=== PATIENT | female | born 1925 | race Caucasian/White ===

== ENCOUNTER 2016-10-26 20:36 | Emergency (ER) | payer SELFPAY ==
--- NOTE | 2016-10-26 22:31 | ED CLINICAL REPORT ---
Clinical Report - Physicians/Mid Levels [facility] [address] [place] [address] 10/26/2016 20:37 Patient: NURY POON Time Seen: 20:57; initial patient contact. Arrived- By private vehicle. Historian- patient. HISTORY OF PRESENT ILLNESS Chief Complaint: ABDOMINAL PAIN. It is described as sharp and it is described as located in the epigastric area and the left chest and radiating to the left chest. At its maximum, severity described as mild. When seen in the E.D., it was gone. Modifying factors. Not worsened by anything. Not relieved by anything. Is now gone (resolved upon arrival in the emergency department). It was gradual in onset and has been intermittent. No nausea, loss of appetite, vomiting or diarrhea. Similar symptoms previously: None. Recent medical care: Not recently seen/assessed. REVIEW OF SYSTEMS No constipation, black stools, hematemesis, difficulty with urination or pain with urination. No bloody stools. All systems otherwise negative, except as recorded above. PAST HISTORY Peripheral Neuropathy. Chronic Back Pain. Head Injury. Laceration. Neuropathy. Back Pain. Hypertension. Lipoma. - ADDITIONAL SURGERIES: Appendectomy. Back Surgery. SOCIAL HISTORY Never smoker. No alcohol use or drug use. ADDITIONAL NOTES The nursing notes have been reviewed. PHYSICAL EXAM Vital Signs: 10/26/2016 20:46 BP: 138/88. HR: 78. RR: 24. O2 saturation: 98%. Temp: 97.8 F. Solis-Brown pain scale: 8/10. Have been reviewed. Blood pressure normal. Heart rate normal. Tachypneic. Temperature normal. Oxygen saturation normal. Appearance: Alert. Oriented X3. No acute distress. Eyes: Eyes normal inspection. ENT: Dry mucous membranes present. Neck: Normal inspection. CVS: Normal heart rate and rhythm. Heart sounds normal. Respiratory: No respiratory distress. Breath sounds normal. Chest nontender. Abdomen: Soft and nontender. Bowel sounds normal. No organomegaly. No mass. Skin: Skin warm and dry. Normal skin color. Extremities: No calf tenderness. No lower extremity edema. Neuro: Oriented X 3. LABS, X-RAYS, AND EKG EKG: EKG time: (2054). No acute process. No acute ischemia. Normal EKG. Normal sinus rhythm. Rate: 74. Normal P waves. Normal MARCO A. Normal QRS complex. Normal axis. Normal ST and T waves, QT and QTc. Prior EKG unavailable. The study has been interpreted contemporaneously by me. The study has been independently viewed by me. The EKG appears to be a good tracing. Interpretation time: 2057. Chest X-ray: No acute disease. Normal lung markings present. Normal heart size. Mediastinum normal. Great vessels normal. No infiltrate. Views: AP. The X-rays were independently viewed by me and interpreted contemporaneously by me. A comparison with prior films reveals that the findings are unchanged. Interpretation time: 22:02. Laboratory Tests: UA-Culture if indicated: (CORAL: 10/26/2016 21:45) ( [facility] 10/26/2016 22:01) IP Test Result Flag Units (Reference) URINE COLOR YELLOW URINE APPEARANCE CLEAR URINE GLUCOSE NEGATIVE (NEGATIVE) URINE BILIRUBIN NEGATIVE (NEGATIVE) URINE KETONE NEGATIVE (NEGATIVE) URINE SPECIFIC GRAVITY 1.020 (1.010-1.030) URINE PH 6.0 (5.0-8.0) URINE PROTEIN NEGATIVE (NEGATIVE) URINE UROBILINOGEN 0.2 EU/dL (0.2-1.0) URINE NITRITE NEGATIVE (NEGATIVE) URINE BLOOD NEGATIVE (NEGATIVE) URINE LEUK ESTERASE NEGATIVE (NEGATIVE) CBC w Diff: (CORAL: 10/26/2016 20:56) ( [facility] 10/26/2016 21:30) Final results Test Result Flag Units (Reference) WHITE BLOOD COUNT 8.3 K/uL (4.5-11.5) RED BLOOD COUNT 4.46 M/uL (4.00-5.20) HEMOGLOBIN 13.9 gm/dL (12.0-16.0) HEMATOCRIT 41.0 % (36.0-46.0) MEAN CELL VOLUME 92 fL (80-100) MEAN CORPUSCULAR HGB 31 pg (26-34) MEAN CORPUSCULAR HGB CONC 34 g/dL (31-37) RED CELL DISTRIBUTION WIDTH 12.6 % (11.6-14.8) PLATELET COUNT 289 K/uL (150-400) NEUTROPHIL % 45.7 L % (50-75) LYMPH % 40.9 H % (25-40) MONO % 11.0 % (3-14) EOSINOPHIL % 1.8 % (0-4) BASOPHIL % 0.6 % (0-2) [id number]: (CORAL: 10/26/2016 20:56) ( [facility] 10/26/2016 21:37) Final results Test Result Flag Units (Reference) D-DIMER QUANTITATIVE < 0.27 L ug/mLFEU (0.27-0.52) The primary value of this quantitative assay relates toits negative predictive value (i.e. exclusion) of pulmonaryembolism/deep vein thrombosis/DIC.Elevated levels of d-dimer may also occur with:, age, cancer, inflammation, liver disease,post-op, infection, hematoma, coronary disease, peripheralarteriopathy, bleeding disorders and thrombolytic treatment.Results should be correlated with other clinical andradiological data.Testing Methodology: Latex Immunoassay BNP: (CORAL: 10/26/2016 20:56) ( [facility] 10/26/2016 21:50) Final results Test Result Flag Units (Reference) B-TYPE NATRIURETIC PEPTIDE 51 pg/ml (5-100) CHEM 13 PANEL: (CORAL: 10/26/2016 20:56) ( [facility] [place] [place] 21:42) Final results Test Result Flag Units (Reference) GLUCOSE 115 H mg/dL (70-110) BUN 21 H mg/dL (7-18) CREATININE 1.1 mg/dL (0.6-1.3) Estimated GFR 49.71 mL/min Estimated GFR- >60 mL/min Note: Persistent reduction over 3 months in eGFR<60 mL/min/1.73 m2 defines CKD. Patients with eGFR values>=60 mL/min/1.73 m2 may also have CKD if evidence ofpersistent proteinuria. Additional information may be foundat www.kidney.org. SODIUM 142 mmol/L (136-145) POTASSIUM 4.6 mmol/L (3.5-5.1) CHLORIDE 104 mmol/L (98-107) CARBON DIOXIDE 30 mmol/L (21-32) CALCIUM 9.4 mg/dL (8.5-10.1) TOTAL PROTEIN 7.6 g/dL (6.4-8.2) ALBUMIN 4.3 g/dL (3.3-5.0) BILIRUBIN, TOTAL 0.2 mg/dL (0.0-1.0) ALKALINE PHOSPHATASE 80 U/L (46-116) AST (SGOT) 12 L U/L (15-37) ALT (SGPT) 19 U/L (12-78) CPK 183 U/L (24-260) MAGNESIUM 2.0 mg/dL (1.8-2.4) TROPONIN I <0.05 L ng/mL (0.00-1.5) TROPONIN REFERENCE RANGE:<0.1 NEGATIVE0.1-1.5 INDETERMINANT>1.5 POSITIVE . PROGRESS AND PROCEDURES Disposition: Discharged home in good and improved condition. Condition: good. CLINICAL IMPRESSION Atypical chest pain .12 lead EKG performed. Mild dehydration INSTRUCTIONS Apply ice for 20 minutes four times a day until better. Don't apply ice directly to skin. Your Current Medications: CONTINUE TAKING THE FOLLOWING MEDICATIONS: Gabapentin Oral : 300 mg 3x a day. Lisinopril Oral. Multivitamins Oral. Musinex* : every morning. Tylenol*. Vitamin*. Vitamin D Oral. Prescription Medications: Tramadol 50 mg: take 1 orally every 6 hours as needed for pain and stiffness. Do not take more than 8 tablets in a 24 hour period. Dispense twenty (20). No refills. Follow-up: Follow up with your doctor in about two days. Call for an appointment. Blood pressure screening was not performed during this visit because the patient has an active diagnosis of hypertension. (Electronically signed by Anthony Haynes Dr. 10/27/2016 9:33)
--- NOTE | 2016-10-26 22:31 | ED ORDER SUMMARY ---
..... Patient: NURY POON OrderSheet [facility] VisitID: [id number] [place] [address] 89y, F Registration Date/Time: 10/26/2016 ORDER SHEET Weight: 68.0 kg (stated) Allergies: Demerol, Estrogen , Phenobarbital GENERAL ORDERS: Chest 1V Urgent (21:10/26/2016 Magen Riley) (Ack 21:30 Asael) (21:37 MCabell) UA-Culture if indicated Urgent (21:10/26/2016 Magen Riley) (Ack 21:30 Asael) (22:03 KPage-Kuchan R.N.) Cardiac Panel Stat (21:10/26/2016 Magen Riley) (Ack 21:30 Asael) (22:03 KPage-Kuchan R.N.) D-Dimer Urgent (21:10/26/2016 Magen Riley) (Ack 21:30 Asael) (22:03 KPage-Kuchan R.N.) BNP Urgent (21:10/26/2016 Magen Riley) (Ack 21:30 Asael) (22:03 KPage-Kuchan R.N.) MEDICATION ORDERS: IV FLUIDS: IV Saline Lock (21:22 10/26/2016 Magen Riley) (21:25 KPage-Kuchan R.N.) IV NS : initial bolus none -, then 1000 mL/hr for X1 (NOW) (22:00 10/26/2016 Magen Riley) (22:04 KPage-Kuchan R.N.) ORDER SHEET NOTES: [Electronically signed by Roseanna Jose R.N. (22:42 10/26/2016)] [Electronically signed by Anthony Haynes Dr. (09:33 10/27/2016)] [Electronically locked/signed by Roseanna Jose R.N. (22:42 10/26/2016)]
--- NOTE | 2016-10-26 22:31 | ED NURSING NOTES ---
Clinical Report - Nurses [facility] [address] [place] [address] 10/26/2016 20:37 [id number] Triage time 20:46. Acuity: LEVEL 3. Chief Complaint: ABDOMINAL PAIN and (upper abdominal pain). Alert. --20:53 Roseanna Jose R.N. 20:46 10/26/16. BP: 138/88. HR: 78. RR: 24. O2 saturation: 98% on room air. Temp: 97.8 F (oral). Solis-Brown pain scale: 8/10. --20:53 Roseanna Jose R.N. Weight: 68 kg stated. Height/Length: 59 inches Per Patient. BMI: 30.3. --20:48 Roseanna Jose R.N. Medications Gabapentin Oral 300 mg, 3x a day. Lisinopril Oral. --20:48 Roseanna Jose R.N. Musinex (every morning). --20:48 Roseanna Jose R.N. Tylenol. --20:48 Roseanna Jose R.N. Vitamin. --20:48 Roseanna Jose R.N. Multivitamins Oral. Vitamin D Oral. --20:49 Roseanna Jose R.N. Allergies Demerol. Probable Moderate Estrogen . (Uncertain) Phenobarbital. (Uncertain allergy) --20:48 Roseanna Jose R.N. History Arrived by private vehicle. Historian: patient. Accompanied by family. Primary physician (Dr English). This started today. Onset. (about 1 hours ago). 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 PAST MEDICAL HX: Immunizations: up-to-date. SOCIAL HX: Never smoker. No alcohol use. FUNCTIONAL ASSESSMENT: Functional assessment performed: requires assistance with the activities of daily living; uses cane. --20:53 Roseanna Jose R.N. PROBLEMS: Peripheral Neuropathy. Chronic Back Pain. Head Injury. Laceration. Neuropathy. Back Pain. Hypertension. Lipoma. --20:49 Roseanna Jose R.N. ADDITIONAL SURGERIES: Appendectomy. Back Surgery. --20:49 Roseanna Jose R.N. Interventions ID band on patient. To treatment room. --20:53 Roseanna Jose R.N. PHYSICAL ASSESSMENT Ambulatory to room. Patient gowned. ( pt presents with large (baseball sized) lump on antierior aspect of right shoulder, caregiver states that it has been looked at and they told her that they can't remove it because of her age.). GENERAL / NEURO / PSYCH: Alert. Oriented X 4. Appears in pain. HEENT: Mucous membranes are pink. RESPIRATORY: Respirations not labored. CVS: Capillary refill less than 2 seconds. SKIN: Skin is warm and dry. --20:54 Roseanna Jose R.N. NURSING PROGRESS NOTES Head of bed elevated. Two patient identifiers checked. Call light placed in reach. Side rails up x 1. Bed placed in lowest position. Brakes of bed on. --20:54 Roseanna Jose R.N. Patient ready for evaluation- chart flagged. --20:54 Roseanna Jose R.N. EKG time: (2054). EKG was performed by a tech and shown to the ED physician. --20:55 Roseanna Jose R.N. 20:59 10/26/2016 Site #1 started via IV in the right antecubital space with an 20g angiocath, with aseptic technique and good blood return; one attempt. Blood drawn: rainbow set. Labeled in the presence of the patient and sent to the lab. Saline lock flushed with 10 mL saline. --20:59 Roseanna Jose R.N. ( assumed care of pt, pt in poc, on monitor, c/o intermittent upper left abd pain that began abruptly this evening, pt has caregiver at bedside, labs sent, call light in hand, waiting MD oliva). --21:07 Jann Crespo R.N. electronic device monitor, pulse oximeter and NIBP monitor placed on patient; monitoring analyst- Lead II and V5; monitor alarms on. Head of bed elevated. Patient identifiers checked. Call light placed in reach. Side rails up x 1. Bed placed in lowest position. Brakes of bed on. Patient waiting for evaluation. --21:07 Jann Crespo R.N. Cardiac rhythm: (SR 70's). Call light placed in reach. Side rails up. --21:38 Jann Crespo R.N. 22:04 10/26/2016 Started bag #1 1000 mL IV Fluids IV NS (Saline); at 1000 mL/hr via site #1. Allergies verified and confirmed 5 rights. IV patency established. IV site checked: no pain, redness, or swelling. IV flushed thoroughly pre- and post-medication administration. --22:04 Jann Crespo R.N. Care transferred and report received. --22:12 Roseanna Jose R.N. 22:13 10/26/16. BP: 127/53. HR: 71. RR: 17. O2 saturation: 97%. --22:13 Jann Crespo R.N. Care transferred and report given (Roseanna RN). --22:15 Jann Crespo R.N. DISPOSITION / DISCHARGE 22:38 10/26/2016 Site #1 removed upon discharge. Catheter intact. Manual pressure and bandage applied. --22:38 Roseanna Jose R.N. 22:38 10/26/16. BP: 130/51. HR: 66. RR: 23. O2 saturation: 97% on room air. Temp: 98.5 F (oral). Pain level now: 0/10. --22:38 Roseanna Jose R.N. Condition at departure: improved and stable. No learning barriers present. Discharge instructions provided and reviewed with the patient. Reviewed medication(s) side effects, precautions, dosing and course information. Prescription(s) given to the patient. Patient verbalized understanding. Written instructions provided in Cameroonian. The patient was discharged home and accompanied by woodworking machine operator. She left the Emergency Department ambulatory and via private vehicle. Residential Manager driving. --22:42 Roseanna Jose R.N. Locked/Released at 10/26/2016 22:42 by Roseanna Jose R.N.
--- NOTE | 2016-10-26 22:31 | ED NURSING NOTES ---
Clinical Report - Nurses [facility] [address] [place] [address] 10/26/2016 20:37 [id number] Triage time 20:46. Acuity: LEVEL 3. Chief Complaint: ABDOMINAL PAIN and (upper abdominal pain). Alert. --20:53 Roseanna Jose R.N. 20:46 10/26/16. BP: 138/88. HR: 78. RR: 24. O2 saturation: 98% on room air. Temp: 97.8 F (oral). Solis-Brown pain scale: 8/10. --20:53 Roseanna Jose R.N. Weight: 68 kg stated. Height/Length: 59 inches Per Patient. BMI: 30.3. --20:48 Roseanna Jose R.N. Medications Gabapentin Oral 300 mg, 3x a day. Lisinopril Oral. --20:48 Roseanna Jose R.N. Musinex (every morning). --20:48 Roseanna Jose R.N. Tylenol. --20:48 Roseanna Jose R.N. Vitamin. --20:48 Roseanna Jose R.N. Multivitamins Oral. Vitamin D Oral. --20:49 Roseanna Jose R.N. Allergies Demerol. Probable Moderate Estrogen . (Uncertain) Phenobarbital. (Uncertain allergy) --20:48 Roseanna Jose R.N. History Arrived by private vehicle. Historian: patient. Accompanied by family. Primary physician (Dr English). This started today. Onset. (about 1 hours ago). 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 PAST MEDICAL HX: Immunizations: up-to-date. SOCIAL HX: Never smoker. No alcohol use. FUNCTIONAL ASSESSMENT: Functional assessment performed: requires assistance with the activities of daily living; uses cane. --20:53 Roseanna Jose R.N. PROBLEMS: Peripheral Neuropathy. Chronic Back Pain. Head Injury. Laceration. Neuropathy. Back Pain. Hypertension. Lipoma. --20:49 Roseanna Jose R.N. ADDITIONAL SURGERIES: Appendectomy. Back Surgery. --20:49 Roseanna Jose R.N. Interventions ID band on patient. To treatment room. --20:53 Roseanna Jose R.N. PHYSICAL ASSESSMENT Ambulatory to room. Patient gowned. ( pt presents with large (baseball sized) lump on antierior aspect of right shoulder, caregiver states that it has been looked at and they told her that they can't remove it because of her age.). GENERAL / NEURO / PSYCH: Alert. Oriented X 4. Appears in pain. HEENT: Mucous membranes are pink. RESPIRATORY: Respirations not labored. CVS: Capillary refill less than 2 seconds. SKIN: Skin is warm and dry. --20:54 Roseanna Jose R.N. NURSING PROGRESS NOTES Head of bed elevated. Two patient identifiers checked. Call light placed in reach. Side rails up x 1. Bed placed in lowest position. Brakes of bed on. --20:54 Roseanna Jose R.N. Patient ready for evaluation- chart flagged. --20:54 Roseanna Jose R.N. EKG time: (2054). EKG was performed by a tech and shown to the ED physician. --20:55 Roseanna oJse R.N. 20:59 10/26/2016 Site #1 started via IV in the right antecubital space with an 20g angiocath, with aseptic technique and good blood return; one attempt. Blood drawn: rainbow set. Labeled in the presence of the patient and sent to the lab. Saline lock flushed with 10 mL saline. --20:59 Roseanna Jose R.N. ( assumed care of pt, pt in poc, on monitor, c/o intermittent upper left abd pain that began abruptly this evening, pt has caregiver at bedside, labs sent, call light in hand, waiting MD oliva). --21:07 Jann Crespo R.N. warrant server, pulse oximeter and NIBP monitor placed on patient; fountain vending mechanic- Lead II and V5; monitor alarms on. Head of bed elevated. Patient identifiers checked. Call light placed in reach. Side rails up x 1. Bed placed in lowest position. Brakes of bed on. Patient waiting for evaluation. --21:07 Jann Crespo R.N. Cardiac rhythm: (SR 70's). Call light placed in reach. Side rails up. --21:38 Jann Crespo R.N. 22:04 10/26/2016 Started bag #1 1000 mL IV Fluids IV NS (Saline); at 1000 mL/hr via site #1. Allergies verified and confirmed 5 rights. IV patency established. IV site checked: no pain, redness, or swelling. IV flushed thoroughly pre- and post-medication administration. --22:04 Jann Crespo R.N. Care transferred and report received. --22:12 Roseanna Jose R.N. 22:13 10/26/16. BP: 127/53. HR: 71. RR: 17. O2 saturation: 97%. --22:13 Jann Crespo R.N. Care transferred and report given (Roseanna RN). --22:15 Jann Crespo R.N. DISPOSITION / DISCHARGE 22:38 10/26/2016 Site #1 removed upon discharge. Catheter intact. Manual pressure and bandage applied. --22:38 Roseanna Jose R.N. 22:38 10/26/16. BP: 130/51. HR: 66. RR: 23. O2 saturation: 97% on room air. Temp: 98.5 F (oral). Pain level now: 0/10. --22:38 Roseanna Jose R.N. Condition at departure: improved and stable. No learning barriers present. Discharge instructions provided and reviewed with the patient. Reviewed medication(s) side effects, precautions, dosing and course information. Prescription(s) given to the patient. Patient verbalized understanding. Written instructions provided in Zimbabwean. The patient was discharged home and accompanied by saute chef. She left the Emergency Department ambulatory and via private vehicle. Olive Grader driving. --22:42 Roseanna Jose R.N. Locked/Released at 10/26/2016 22:42 by Roseanna Jose R.N.
--- NOTE | 2016-10-26 22:31 | ED CLINICAL REPORT ---
Clinical Report - Physicians/Mid Levels Formerly [facility] [address] [place] [address] 10/26/2016 20:37 Patient: NURY POON Time Seen: 20:57; initial patient contact. Arrived- By private vehicle. Historian- patient. HISTORY OF PRESENT ILLNESS Chief Complaint: ABDOMINAL PAIN. It is described as sharp and it is described as located in the epigastric area and the left chest and radiating to the left chest. At its maximum, severity described as mild. When seen in the E.D., it was gone. Modifying factors. Not worsened by anything. Not relieved by anything. Is now gone (resolved upon arrival in the emergency department). It was gradual in onset and has been intermittent. No nausea, loss of appetite, vomiting or diarrhea. Similar symptoms previously: None. Recent medical care: Not recently seen/assessed. REVIEW OF SYSTEMS No constipation, black stools, hematemesis, difficulty with urination or pain with urination. No bloody stools. All systems otherwise negative, except as recorded above. PAST HISTORY Peripheral Neuropathy. Chronic Back Pain. Head Injury. Laceration. Neuropathy. Back Pain. Hypertension. Lipoma. - ADDITIONAL SURGERIES: Appendectomy. Back Surgery. SOCIAL HISTORY Never smoker. No alcohol use or drug use. ADDITIONAL NOTES The nursing notes have been reviewed. PHYSICAL EXAM Vital Signs: 10/26/2016 20:46 BP: 138/88. HR: 78. RR: 24. O2 saturation: 98%. Temp: 97.8 F. Solis-Brown pain scale: 8/10. Have been reviewed. Blood pressure normal. Heart rate normal. Tachypneic. Temperature normal. Oxygen saturation normal. Appearance: Alert. Oriented X3. No acute distress. Eyes: Eyes normal inspection. ENT: Dry mucous membranes present. Neck: Normal inspection. CVS: Normal heart rate and rhythm. Heart sounds normal. Respiratory: No respiratory distress. Breath sounds normal. Chest nontender. Abdomen: Soft and nontender. Bowel sounds normal. No organomegaly. No mass. Skin: Skin warm and dry. Normal skin color. Extremities: No calf tenderness. No lower extremity edema. Neuro: Oriented X 3. LABS, X-RAYS, AND EKG EKG: EKG time: (2054). No acute process. No acute ischemia. Normal EKG. Normal sinus rhythm. Rate: 74. Normal P waves. Normal MARCO A. Normal QRS complex. Normal axis. Normal ST and T waves, QT and QTc. Prior EKG unavailable. The study has been interpreted contemporaneously by me. The study has been independently viewed by me. The EKG appears to be a good tracing. Interpretation time: 2057. Chest X-ray: No acute disease. Normal lung markings present. Normal heart size. Mediastinum normal. Great vessels normal. No infiltrate. Views: AP. The X-rays were independently viewed by me and interpreted contemporaneously by me. A comparison with prior films reveals that the findings are unchanged. Interpretation time: 22:02. Laboratory Tests: UA-Culture if indicated: (CORAL: 10/26/2016 21:45) ( [facility] 10/26/2016 22:01) IP Test Result Flag Units (Reference) URINE COLOR YELLOW URINE APPEARANCE CLEAR URINE GLUCOSE NEGATIVE (NEGATIVE) URINE BILIRUBIN NEGATIVE (NEGATIVE) URINE KETONE NEGATIVE (NEGATIVE) URINE SPECIFIC GRAVITY 1.020 (1.010-1.030) URINE PH 6.0 (5.0-8.0) URINE PROTEIN NEGATIVE (NEGATIVE) URINE UROBILINOGEN 0.2 EU/dL (0.2-1.0) URINE NITRITE NEGATIVE (NEGATIVE) URINE BLOOD NEGATIVE (NEGATIVE) URINE LEUK ESTERASE NEGATIVE (NEGATIVE) CBC w Diff: (CORAL: 10/26/2016 20:56) ( [facility] 10/26/2016 21:30) Final results Test Result Flag Units (Reference) WHITE BLOOD COUNT 8.3 K/uL (4.5-11.5) RED BLOOD COUNT 4.46 M/uL (4.00-5.20) HEMOGLOBIN 13.9 gm/dL (12.0-16.0) HEMATOCRIT 41.0 % (36.0-46.0) MEAN CELL VOLUME 92 fL (80-100) MEAN CORPUSCULAR HGB 31 pg (26-34) MEAN CORPUSCULAR HGB CONC 34 g/dL (31-37) RED CELL DISTRIBUTION WIDTH 12.6 % (11.6-14.8) PLATELET COUNT 289 K/uL (150-400) NEUTROPHIL % 45.7 L % (50-75) LYMPH % 40.9 H % (25-40) MONO % 11.0 % (3-14) EOSINOPHIL % 1.8 % (0-4) BASOPHIL % 0.6 % (0-2) [id number]: (CORAL: 10/26/2016 20:56) ( [facility] 10/26/2016 21:37) Final results Test Result Flag Units (Reference) D-DIMER QUANTITATIVE < 0.27 L ug/mLFEU (0.27-0.52) The primary value of this quantitative assay relates toits negative predictive value (i.e. exclusion) of pulmonaryembolism/deep vein thrombosis/DIC.Elevated levels of d-dimer may also occur with:, age, cancer, inflammation, liver disease,post-op, infection, hematoma, coronary disease, peripheralarteriopathy, bleeding disorders and thrombolytic treatment.Results should be correlated with other clinical andradiological data.Testing Methodology: Latex Immunoassay BNP: (CORAL: 10/26/2016 20:56) ( [facility] 10/26/2016 21:50) Final results Test Result Flag Units (Reference) B-TYPE NATRIURETIC PEPTIDE 51 pg/ml (5-100) CHEM 13 PANEL: (CORAL: 10/26/2016 20:56) ( [facility] 10/26/2016 21:42) Final results Test Result Flag Units (Reference) GLUCOSE 115 H mg/dL (70-110) BUN 21 H mg/dL (7-18) CREATININE 1.1 mg/dL (0.6-1.3) Estimated GFR 49.71 mL/min Estimated GFR- >60 mL/min Note: Persistent reduction over 3 months in eGFR<60 mL/min/1.73 m2 defines CKD. Patients with eGFR values>=60 mL/min/1.73 m2 may also have CKD if evidence ofpersistent proteinuria. Additional information may be foundat www.kidney.org. SODIUM 142 mmol/L (136-145) POTASSIUM 4.6 mmol/L (3.5-5.1) CHLORIDE 104 mmol/L (98-107) CARBON DIOXIDE 30 mmol/L (21-32) CALCIUM 9.4 mg/dL (8.5-10.1) TOTAL PROTEIN 7.6 g/dL (6.4-8.2) ALBUMIN 4.3 g/dL (3.3-5.0) BILIRUBIN, TOTAL 0.2 mg/dL (0.0-1.0) ALKALINE PHOSPHATASE 80 U/L (46-116) AST (SGOT) 12 L U/L (15-37) ALT (SGPT) 19 U/L (12-78) CPK 183 U/L (24-260) MAGNESIUM 2.0 mg/dL (1.8-2.4) TROPONIN I <0.05 L ng/mL (0.00-1.5) TROPONIN REFERENCE RANGE:<0.1 NEGATIVE0.1-1.5 INDETERMINANT>1.5 POSITIVE . PROGRESS AND PROCEDURES Disposition: Discharged home in good and improved condition. Condition: good. CLINICAL IMPRESSION Atypical chest pain .12 lead EKG performed. Mild dehydration INSTRUCTIONS Apply ice for 20 minutes four times a day until better. Don't apply ice directly to skin. Your Current Medications: CONTINUE TAKING THE FOLLOWING MEDICATIONS: Gabapentin Oral : 300 mg 3x a day. Lisinopril Oral. Multivitamins Oral. Musinex* : every morning. Tylenol*. Vitamin*. Vitamin D Oral. Prescription Medications: Tramadol 50 mg: take 1 orally every 6 hours as needed for pain and stiffness. Do not take more than 8 tablets in a 24 hour period. Dispense twenty (20). No refills. Follow-up: Follow up with your doctor in about two days. Call for an appointment. Blood pressure screening was not performed during this visit because the patient has an active diagnosis of hypertension. (Electronically signed by Anthony Haynes Dr. 10/27/2016 9:33)
--- NOTE | 2016-10-26 22:31 | ED ORDER SUMMARY ---
..... Patient: NURY POON OrderSheet [facility] VisitID: [id number] [place] [address] 89y, F Registration Date/Time: 10/26/2016 ORDER SHEET Weight: 68.0 kg (stated) Allergies: Demerol, Estrogen , Phenobarbital GENERAL ORDERS: Chest 1V Urgent (21:10/26/2016 Magen Riley) (Ack 21:30 Asael) (21:37 MCabell) UA-Culture if indicated Urgent (21:10/26/2016 Magen Riley) (Ack 21:30 Asael) (22:03 KPage-Kuchan R.N.) Cardiac Panel Stat (21:10/26/2016 Magen Riley) (Ack 21:30 Asael) (22:03 KPage-Kuchan R.N.) D-Dimer Urgent (21:10/26/2016 Magen Riley) (Ack 21:30 Asael) (22:03 KPage-Kuchan R.N.) BNP Urgent (21:10/26/2016 Magen Riley) (Ack 21:30 Asael) (22:03 KPage-Kuchan R.N.) MEDICATION ORDERS: IV FLUIDS: IV Saline Lock (21:22 10/26/2016 Magen Riley) (21:25 KPage-Kuchan R.N.) IV NS : initial bolus none -, then 1000 mL/hr for X1 (NOW) (22:00 10/26/2016 Magen Riley) (22:04 KPage-Kuchan R.N.) ORDER SHEET NOTES: [Electronically signed by Roseanna Jose R.N. (22:42 10/26/2016)] [Electronically signed by Anthony Haynes Dr. (09:33 10/27/2016)] [Electronically locked/signed by Roseanna Jose R.N. (22:42 10/26/2016)]
--- NOTE | 2016-10-26 23:04 | DIAGNOSTIC IMAGING REPORT ---
PROCEDURE: XR CHEST 1 VIEW INDICATION: CHEST PAIN TECHNIQUE: Portable AP view 09:32 p.m. COMPARISON: Chest x-ray 11/01/2012. FINDINGS: Lungs are clear. Heart and mediastinum are normal. Thorax is normal. IMPRESSION: 1. Negative chest.
--- NOTE | 2016-10-27 09:33 | ED MAR SUMMARY ---
..... Medication Administration Record [facility] [address] [place] [address] Patient: NURY POON Visit ID: [id number] 89y, F Weight: 68.0 kg Height/Length: 59 in BMI: 30.3 ALLERGIES: Demerol, Estrogen , Phenobarbital Start 22:04 10/26/2016 Jann Crespo R.N. Medication Administered: IV NS (SALINE), Dose: IV Fluids, Rate: 1000 mL/hr, Dispensed: 1000 mL bag, Site: #1 right AC. Medication Ordered: IV NS : initial bolus none -, then 1000 mL/hr for X1 (NOW).
--- NOTE | 2016-10-27 09:33 | ED DISCHARGE INSTRUCTIONS ---
Patient: NURY POON General Instructions [facility] VisitID: [id number] [place] [address] 89y, F Registration Date/Time: 10/26/2016 Atypical chest pain .12 lead EKG performed. Mild dehydration INSTRUCTIONS Apply ice for 20 minutes four times a day until better. Don't apply ice directly to skin. Your Current Medications: CONTINUE TAKING THE FOLLOWING MEDICATIONS: Gabapentin Oral : 300 mg 3x a day. Lisinopril Oral. Multivitamins Oral. Musinex* : every morning. Tylenol*. Vitamin*. Vitamin D Oral. Prescription Medications: Tramadol 50 mg: take 1 orally every 6 hours as needed for pain and stiffness. Do not take more than 8 tablets in a 24 hour period. Dispense twenty (20). No refills. Follow-up: Follow up with your doctor in about two days. Call for an appointment. Blood pressure screening was not performed during this visit because the patient has an active diagnosis of hypertension. ADDITIONAL INFORMATION Chest Pain, Noncardiac Based on your visit today, the exact cause of your chest pain is not certain. Your condition does not seem serious and your pain does not appear to be coming from your heart. However, sometimes the signs of a serious problem take more time to appear. Therefore, please watch for the warning signs listed below. Home Care: Rest today and avoid strenuous activity. Take any prescribed medicine as directed. Follow Up with your doctor or this facility as instructed or if you do not start to feel better within 24 hours. Get Prompt Medical Attention if any of the following occur: A change in the type of pain: if it feels different, becomes more severe, lasts longer, or begins to spread into your shoulder, arm, neck, jaw or back Shortness of breath or increased pain with breathing Cough with dark colored sputum (phlegm) or blood Weakness, dizziness, or fainting Fever of 100.4F (38C) or higher, or as directed by your healthcare provider Swelling, pain or redness in one leg Dehydration (Adult) Dehydration occurs when your body loses too much fluid. This may be the result of vomiting a lot or from diarrhea,sweating a lot, or a high fever. It may also happen if you dont drink enough fluid when youre sick. Misuse of diuretics (water pills) can also be a cause. Symptoms include thirst and feeling dizzy, weak, fatigued, or very drowsy. The diet described below is usually enough to treat most cases. Sometimes you may needmedicine. Home Care Follow these guidelines for home care: Drink at least 12 8-ounce glasses of fluid every day to overcome the dehydration. Fluid may include water; orange juice; lemonade; apple, grape, and cranberry juice; clear fruit drinks; electrolyte replacement and sports drinks; and teas and coffee without caffeine. If you have been diagnosed with a kidney disease, ask your doctor how much and what types of fluids you should drink to prevent dehydration. If you have kidney disease, drinking too much fluid can cause it build up in the your body and be dangerous to your health. If you have fever, muscle aching, or headache from a viral syndrome, you may useacetaminophen or ibuprofen, unless another medicine was prescribed for this.If you have chronic liver or kidney disease or ever had a stomach ulcer or GI bleeding, talk with your doctor before using these medicines. Don't take aspirin if you are younger than 18 and are ill with a fever.Aspirin raises the chance forsevere liver injury. Follow-up care Follow up with your health care provider if you don't get better in the next 24 to 48 hours. When to seek medical care Get prompt medical attention if any of theseoccur: Continued vomiting (cant keep liquids down) Frequent diarrhea (more than 5 times a day); blood (red or black color) or mucus in diarrhea Blood in vomit or stool Swollen abdomen or increasing abdominal pain Weakness, dizziness, or fainting Unusually drowsy or confused Reduced urine output or extreme thirst Fever of 100.4 F (38 C) oral or higher that does not get better with fever medication Tramadol Hydrochloride Oral tablet What is this medicine? TRAMADOL (TRA ma dole) is a pain reliever. It is used to treat moderate to severe pain in adults. How should I use this medicine? Take this medicine by mouth with a full glass of water. Follow the directions on the prescription label. If the medicine upsets your stomach, take it with food or milk. Do not take more medicine than you are told to take. Talk to your salon professional regarding the use of this medicine in children. Special care may be needed. What side effects may I notice from receiving this medicine? Side effects that you should report to your doctor or health dog daycare provider as soon as possible: allergic reactions like skin rash, itching or hives, swelling of the face, lips, or tongue breathing difficulties, wheezing confusion itching light headedness or fainting spells redness, blistering, peeling or loosening of the skin, including inside the mouth seizures Side effects that usually do not require medical attention (report to your doctor or health dog daycare provider if they continue or are bothersome): constipation dizziness drowsiness headache nausea, vomiting What may interact with this medicine? Do not take this medicine with any of the following medications: MAOIs like Carbex, Eldepryl, Marplan, Nardil, and Parnate This medicine may also interact with the following medications: alcohol or medicines that contain alcohol antihistamines benzodiazepines bupropion carbamazepine or oxcarbazepine clozapine cyclobenzaprine digoxin furazolidone linezolid medicines for depression, anxiety, or psychotic disturbances medicines for migraine headache like almotriptan, eletriptan, frovatriptan, naratriptan, rizatriptan, sumatriptan, zolmitriptan medicines for pain like pentazocine, buprenorphine, butorphanol, meperidine, nalbuphine, and propoxyphene medicines for sleep muscle relaxants naltrexone phenobarbital phenothiazines like perphenazine, thioridazine, chlorpromazine, mesoridazine, fluphenazine, prochlorperazine, promazine, and trifluoperazine procarbazine warfarin What if I miss a dose? If you miss a dose, take it as soon as you can. If it is almost time for your next dose, take only that dose. Do not take double or extra doses. Where should I keep my medicine? Keep out of the reach of children. Store at room temperature between 15 and 30 degrees C (59 and 86 degrees F). Keep container tightly closed. Throw away any unused medicine after the expiration date. What should I tell my health care provider before I take this medicine? They need to know if you have any of these conditions: brain tumor depression drug abuse or addiction head injury if you frequently drink alcohol containing drinks kidney disease or trouble passing urine liver disease lung disease, asthma, or breathing problems seizures or epilepsy suicidal thoughts, plans, or attempt; a previous suicide attempt by you or a family member an unusual or allergic reaction to tramadol, codeine, other medicines, foods, dyes, or preservatives or trying to get breast-feeding What should I watch for while using this medicine? Tell your doctor or health dog daycare provider if your pain does not go away, if it gets worse, or if you have new or a different type of pain. You may develop tolerance to the medicine. Tolerance means that you will need a higher dose of the medicine for pain relief. Tolerance is normal and is expected if you take this medicine for a long time. Do not suddenly stop taking your medicine because you may develop a severe reaction. Your body becomes used to the medicine. This does NOT mean you are addicted. Addiction is a behavior related to getting and using a drug for a non-medical reason. If you have pain, you have a medical reason to take pain medicine. Your doctor will tell you how much medicine to take. If your doctor wants you to stop the medicine, the dose will be slowly lowered over time to avoid any side effects. You may get drowsy or dizzy. Do not drive, use machinery, or do anything that needs mental alertness until you know how this medicine affects you. Do not stand or sit up quickly, especially if you are an older patient. This reduces the risk of dizzy or fainting spells. Alcohol can increase or decrease the effects of this medicine. Avoid alcoholic drinks. You may have constipation. Try to have a bowel movement at least every 2 to 3 days. If you do not have a bowel movement for 3 days, call your doctor or health dog daycare provider. Your mouth may get dry. Chewing sugarless gum or sucking hard candy, and drinking plenty of water may help. Contact your doctor if the problem does not go away or is severe. You have been given the following additional information: Chest Pain, Noncardiac Dehydration (Adult) Tramadol Hydrochloride Oral tablet (Electronically signed by Anthony Haynes Dr. 10/27/2016 9:33)
--- NOTE | 2016-10-27 09:33 | ED MAR SUMMARY ---
..... Medication Administration Record [facility] [address] [place] [address] Patient: NURY POON Visit ID: [id number] 89y, F Weight: 68.0 kg Height/Length: 59 in BMI: 30.3 ALLERGIES: Demerol, Estrogen , Phenobarbital Start 22:04 10/26/2016 Jann Crespo R.N. Medication Administered: IV NS (SALINE), Dose: IV Fluids, Rate: 1000 mL/hr, Dispensed: 1000 mL bag, Site: #1 right AC. Medication Ordered: IV NS : initial bolus none -, then 1000 mL/hr for X1 (NOW).
--- NOTE | 2016-10-27 09:34 | ED MED RECONCILIATION SUMMARY ---
Patient: NURY POON Medication Reconciliation Report [facility] VisitID: [id number] [address] [place] [address] 89y, F Registration Date/Time: 10/26/2016 Weight: 68.0 kg Height/Length: 59 in. BMI: 30.3 ALLERGIES: Demerol, Estrogen , Phenobarbital The patient's Home Medications are listed below: CONTINUE TAKING THE FOLLOWING MEDICATIONS: Gabapentin Oral 300 mg, 3x a day Lisinopril Oral Multivitamins Oral Musinex, every morning Tylenol Vitamin Vitamin D Oral The source(s) of the original Home Medication information: Not obtained. The following Medications were given to the patient in the Emergency Department: IV NS IV Fluids bolus 0, then 1000 mL/hr, administered: 10/26/2016 10:04:00 PM The following Medications were prescribed to the patient: Tramadol 50 mg: take 1 orally every 6 hours as needed for pain and stiffness. Do not take more than 8 tablets in a 24 hour period. Dispense twenty (20). No refills. -- Anthony Hanyes Dr.
--- NOTE | 2016-10-27 09:34 | ED MED RECONCILIATION SUMMARY ---
Patient: NURY POON Medication Reconciliation Report [facility] VisitID: [id number] [address] [place] [address] 89y, F Registration Date/Time: 10/26/2016 Weight: 68.0 kg Height/Length: 59 in. BMI: 30.3 ALLERGIES: Demerol, Estrogen , Phenobarbital The patient's Home Medications are listed below: CONTINUE TAKING THE FOLLOWING MEDICATIONS: Gabapentin Oral 300 mg, 3x a day Lisinopril Oral Multivitamins Oral Musinex, every morning Tylenol Vitamin Vitamin D Oral The source(s) of the original Home Medication information: Not obtained. The following Medications were given to the patient in the Emergency Department: IV NS IV Fluids bolus 0, then 1000 mL/hr, administered: 10/26/2016 10:04:00 PM The following Medications were prescribed to the patient: Tramadol 50 mg: take 1 orally every 6 hours as needed for pain and stiffness. Do not take more than 8 tablets in a 24 hour period. Dispense twenty (20). No refills. -- Anthony Haynes Dr.
== END 2016-10-26 22:41 | disposition home or self-care (01) ==
LOC: ED SRH 20:36
DX: E86.0 Dehydration (principal); R07.89 Other chest pain; I10 Essential (primary) hypertension; Z79.899 Other long term (current) drug therapy; Z88.5 Allergy status to narcotic agent; Z88.8 Allergy status to other drugs, medicaments and biological substances
CPT/HCPCS: 81460; 90004; 90100; 90616; 91320; 91556; 92610; 92720; 95059